=== PATIENT | female | born 1955 | race African-American/Black ===

== ENCOUNTER 2021-09-02 22:49 | Emergency (ER) | payer OTHER, MEDICARE ==
[~2021-09-02] VITALS: Ht 167.6 cm; Wt 87.0 kg
[2021-09-02] MEDS ORDERED: METOCLOPRAMIDE HCL 10MG/2ML VIAL IV ONE (23:15)
[2021-09-02] MEDS ORDERED: DIPHENHYDRAMINE 50MG/ML VIAL IV ONE (23:15)
[2021-09-02 23:53] LABS: BASOPHILS % 0.7 % (0.0-2.0); HEMATOCRIT. 39.5 % (36.0-48.0); HEMOGLOBIN. 12.8 g/dL (12.0-16.0); LYMPHOCYTES % 23.8 % (20.0-50.0); MEAN CORPUSCULAR HEMOGLOBIN 27.7 pg (28.0-32.0); MEAN CORPUSCULAR VOLUME 85.8 fL (81.0-99.0); MEAN PLATELET VOLUME 8.3 fl (7.4-10.4); MONOCYTES % 7.1 % (2.0-8.0); NEUTROPHILS % 67.4 % (40.0-76.0); PLATELET 167 x1000/uL (130-400); RED BLOOD CELL COUNT 4.61 mill/uL (4.2-5.4); RED CELL DISTRIBUTION WIDTH 13.1 % (11.6-14.6)
[2021-09-02 23:58] LABS: CHLORIDE 106 mEq/L (98-107)
[2021-09-03] MEDS ORDERED: ENALAPRIL 2.5MG/2ML VIAL 2ML IV ONE (00:45)
[2021-09-03] MEDS ORDERED: MORPHINE SULFATE 4 MG/ML CPJ (NOT FOR IM USE) IV ONE ×2 (00:45→10:00)
[2021-09-03] MEDS ORDERED: IOHEXOL-350 100 ML BOTTLE ONE (06:11)
[2021-09-03] MEDS ORDERED: HYDRALAZINE 20MG/ML VIAL IV ONE (12:30)
[2021-09-03 12:42] VITALS: BP 166/83
== END 2021-09-03 13:11 | disposition short-term general hospital (02) ==
LOC: ER 22:49
DX: R51.9 Headache, unspecified (principal); E11.9 Type 2 diabetes mellitus without complications; I10 Essential (primary) hypertension; E78.00 Pure hypercholesterolemia, unspecified; Z88.2 Allergy status to sulfonamides
CPT/HCPCS: 36415; 70450; 70496; 71045; 80053; 82962; 85025; 93005; 96374; 96375; 96376; 99285; J0360; J1200; J2270; J2765; J3490; Q9967

== ENCOUNTER 2022-11-23 10:43 | Inpatient (IN) | payer MEDICARE, OTHER ==
[2022-11-23] VITALS (7 sets, daily range): BP systolic 103–153; BP diastolic 37–69; PULSE 80–93; RESP 12–26; TEMP 99.2–99.5
[~2022-11-23] VITALS: Ht 165.1 cm; Wt 79.4 kg
[2022-11-23] MEDS ORDERED: insulin (10:46)
[2022-11-23] MEDS ORDERED: SODIUM CHLORIDE 0.9% 1000ML BAG (SEPSIS BOLUS) IV ONE (11:00)
[2022-11-23 11:37] LABS: BG BASE EXCESS -12.1 mmol/L (-2.0-2.0); BG CARBOXYHEMOGLOBIN 0.3 % (0.5-1.5); BG DEOXYHEMOGLOBIN 4.4 % (0.0-5.0); BG HCO3 ACT 12.6 mmol/L (22.0-26.0); BG METHEMOGLOBIN 0.4 % (0.0-1.5); BG OXYGEN SATURATION 95.6 % (92.0-98.5); BG OXYHEMOGLOBIN 94.9 % (94.0-97.0); BG PCO2 26.5 mmHg (35.0-45.0); BG PH 7.295 (7.350-7.450); BG PO2 84.9 mmHg (75.0-100.0); BG SAMPLE SITE RIGHT BRACHIAL; BG TOTAL HEMOGLOBIN 14.9 g/dL (12.0-18.0); BG VENT MODE ROOM AIR
[2022-11-23 12:15] LABS: BASOPHILS % 0.2 % (0.0-2.0); EOSINOPHILS % 0.1 % (0.0-5.0); HEMATOCRIT. 42.8 % (36.0-48.0); HEMOGLOBIN. 13.9 g/dL (12.0-16.0); LYMPHOCYTES % 9.2 % (20.0-50.0); MEAN CORPUSCULAR HEMOGLOBIN 28.5 pg (28.0-32.0); MEAN CORPUSCULAR HGB CONC 32.6 g/dL (31.0-37.0); MEAN CORPUSCULAR VOLUME 87.3 fL (81.0-99.0); MONOCYTES % 6.7 % (2.0-8.0); NEUTROPHILS % 83.8 % (40.0-76.0); RED CELL DISTRIBUTION WIDTH 13.4 % (11.6-14.6); WHITE BLOOD COUNT 13.2 x1000/uL (4.5-11.0)
[2022-11-23 12:19] LABS: CHLORIDE 93 mEq/L (98-107); INDEX HEMOLYSI 4 (1-3); INDEX ICTERIC 1 (1-4); INDEX LIPEMIC 1 (1-3); SODIUM 130 mEq/L (136-145)
[2022-11-23 12:24] LABS: PROTHROMBIN TIME 10.4 sec (9.6-11.0)
[2022-11-23 12:28] LABS: POTASSIUM 6.1 mEq/L (3.5-5.1)
[2022-11-23 12:31] LABS: ALANINE AMINOTRANSFERASE 24 IU/L (13-61); ALBUMIN 3.2 g/dL (3.4-5.0); ASPARTATE AMINOTRANSFERASE 17 IU/L (15-37); BILIRUBIN TOTAL 0.6 mg/dL (0.1-1.0); CALCIUM 9.4 mg/dL (8.5-10.1); CARBON DIOXIDE 12 mEq/L (21-32); CREATININE 2.1 mg/dL (0.6-1.3); PROTEIN TOTAL 7.6 g/dL (6.0-8.3); TROPONIN I HIGH SENSITIVITY 17 ng/L (<54); UREA NITROGEN BLOOD 58 mg/dL (7-21)
[2022-11-23 12:34] LABS: CLARITY URINE CLEAR (CLEAR); COLOR URINE YELLOW (YELLOW); GLUCOSE URINE 3+ (NEGATIVE); KETONES URINE 1+ (NEGATIVE); LEUKOCYTE ESTERASE URINE NEGATIVE (NEGATIVE); NITRITE URINE NEGATIVE (NEGATIVE); OCCULT BLOOD URINE TRACE (NEGATIVE); PH URINE 5.5 (4.5-8.0); PROTEIN URINE 3+ (NEGATIVE); SPECIFIC GRAVITY URINE 1.026 (1.005-1.030); UROBILINOGEN URINE 0.2 E.U./dL (0.2-1.0)
[2022-11-23 12:35] LABS: DIFFERENTIAL COMMENT 1
[2022-11-23 12:39] LABS: YEAST URINE NONE SEEN
[2022-11-23 12:45] LABS: GLUCOSE 963 mg/dL (70-105)
[2022-11-23] MEDS ORDERED: INSULIN REGULAR (HUMULIN R) 300UNITS/3ML VIAL IV ONE (12:45)
[2022-11-23] MEDS ORDERED: SODIUM CHLORIDE 0.9% 1,000 ML IV SCH ×2 (12:45→14:30)
[2022-11-23] MEDS ORDERED: DEXT 5%/0.9% NACL 1,000 ML IV SCH (12:45)
[2022-11-23] MEDS ORDERED: BLOOD SUGAR DIAGNOSTIC STRIP TEST SCH ×2 (12:45→15:00)
[2022-11-23] MEDS ORDERED: POTASSIUM CHLORIDE INJ 40 MEQ in SODIUM CHLORIDE 0.9% 230 ML IV PRN ×2 (12:45→16:15)
[2022-11-23] MEDS ORDERED: KCL 20MEQ/100ML PREMIX 100 ML IV PRN ×2 (12:45→16:15)
[2022-11-23] MEDS ORDERED: DEXTROSE 50% WATER 50ML SYRINGE IV PRN ×4 (12:45→16:15)
[2022-11-23 12:46] LABS: LACTIC ACID 2.8 mmol/L (0.4-2.0)
[2022-11-23 12:59] LABS: PLATELET 197 x1000/uL (130-400)
[2022-11-23 13:01] LABS: BG BASE EXCESS -12.8 mmol/L (-2.0-2.0); BG CARBOXYHEMOGLOBIN 0.5 % (0.5-1.5); BG DEOXYHEMOGLOBIN 3.9 % (0.0-5.0); BG HCO3 ACT 11.2 mmol/L (22.0-26.0); BG METHEMOGLOBIN 0.4 % (0.0-1.5); BG OXYGEN SATURATION 96.1 % (92.0-98.5); BG OXYHEMOGLOBIN 95.2 % (94.0-97.0); BG PCO2 22.5 mmHg (35.0-45.0); BG PH 7.315 (7.350-7.450); BG PO2 83.2 mmHg (75.0-100.0); BG SAMPLE SITE RIGHT RADIAL; BG VENT MODE ROOM AIR
[2022-11-23 13:10] LABS: BACTERIA URINE 1+; SQUAMOUS EPITHELIAL CELL URINE RARE /lpf (RARE/1+); WBC URINE 0-2 /hpf (0-2)
[2022-11-23 13:24] LABS: CALCIUM 9.2 mg/dL (8.5-10.1)
[2022-11-23 13:36] LABS: CREATININE 2.2 mg/dL (0.6-1.3); PHOSPHORUS 7.8 mg/dL (2.5-4.9)
[2022-11-23 13:51] LABS: POTASSIUM 6.3 mEq/L (3.5-5.1)
[2022-11-23 14:15] LABS: BETA HYDROXYBUTYRATE 11.1 mMol/L (0.0-0.3)
[2022-11-23] MEDS ORDERED: INSULIN REGULAR 100U/100ML PMX 100 ML IV SCH ×2 (14:30→15:00)
[2022-11-23] MEDS ORDERED: INSULIN REGULAR (HUMULIN R) 300UNITS/3ML VIAL IV NR (16:15)
[2022-11-23] MEDS ORDERED: MAGNESIUM 2 G PREMIX 100 ML IV PRN (16:15)
[2022-11-23] MEDS ORDERED: ACETAMINOPHEN 325MG TABLET PO PRN (17:45)
[2022-11-23] MEDS ORDERED: ONDANSETRON HCL 4MG/2ML INJ IV PRN (17:45)
[2022-11-23] MEDS: INSULIN REGULAR 100U/100ML PMX 100 ML IV SCH (18:00)
[2022-11-23] MEDS: BLOOD SUGAR DIAGNOSTIC STRIP TEST SCH ×6 (18:15→23:15)
[2022-11-23] MEDS: SODIUM CHLORIDE 0.9% 1,000 ML IV SCH ×2 (18:57→22:17)
[2022-11-23] MEDS: DEXT 5%/0.9% NACL 1,000 ML IV SCH (21:15)
[2022-11-23 21:25] LABS: CALCIUM 8.5 mg/dL (8.5-10.1); POTASSIUM 4.1 mEq/L (3.5-5.1)
[2022-11-23 21:30] LABS: CREATININE 2.1 mg/dL (0.6-1.3); PHOSPHORUS 2.9 mg/dL (2.5-4.9)
[2022-11-24] VITALS (20 sets, daily range): BP systolic 102–163; BP diastolic 48–86; PULSE 64–79; RESP 16–23; TEMP 97.7–100.5
[2022-11-24] MEDS: BLOOD SUGAR DIAGNOSTIC STRIP TEST SCH ×13 (00:15→21:29)
[2022-11-24 01:13] LABS: POTASSIUM 3.6 mEq/L (3.5-5.1)
[2022-11-24 01:15] LABS: CALCIUM 8.4 mg/dL (8.5-10.1)
[2022-11-24 01:20] LABS: CREATININE 2.1 mg/dL (0.6-1.3); PHOSPHORUS 3.1 mg/dL (2.5-4.9)
[2022-11-24] MEDS: INSULIN REGULAR 100U/100ML PMX 100 ML IV SCH (01:39)
[2022-11-24] MEDS: DEXT 5%/0.9% NACL 1,000 ML IV SCH ×2 (03:16→08:07)
[2022-11-24 05:47] LABS: POTASSIUM 4.2 mEq/L (3.5-5.1)
[2022-11-24 05:55] LABS: CALCIUM 8.4 mg/dL (8.5-10.1); CREATININE 1.9 mg/dL (0.6-1.3); PHOSPHORUS 3.1 mg/dL (2.5-4.9)
[2022-11-24] MEDS: PANTOPRAZOLE SODIUM 40 MG/VIAL IV SCH (09:00)
[2022-11-24 09:26] LABS: POTASSIUM 4.6 mEq/L (3.5-5.1)
[2022-11-24 09:30] LABS: CREATININE 1.7 mg/dL (0.6-1.3)
[2022-11-24] MEDS ORDERED: INSULIN GLARGINE 100 UNITS/ML SUBCUT NR (11:00)
[2022-11-24] MEDS ORDERED: DEXTROSE 50% WATER 50ML SYRINGE IV PRN (11:00)
[2022-11-24 12:24] LABS: BASOPHILS % 0.1 % (0.0-2.0); EOSINOPHILS % 0.1 % (0.0-5.0); HEMATOCRIT. 34.8 % (36.0-48.0); LYMPHOCYTES % 14.1 % (20.0-50.0); MEAN CORPUSCULAR HGB CONC 31.7 g/dL (31.0-37.0); MEAN CORPUSCULAR VOLUME 85.3 fL (81.0-99.0); MEAN PLATELET VOLUME 8.8 fl (7.4-10.4); MONOCYTES % 8.6 % (2.0-8.0); NEUTROPHILS % 77.1 % (40.0-76.0); PLATELET 248 x1000/uL (130-400); RED BLOOD CELL COUNT 4.07 mill/uL (4.2-5.4); RED CELL DISTRIBUTION WIDTH 13.6 % (11.6-14.6); WHITE BLOOD COUNT 18.3 x1000/uL (4.5-11.0)
[2022-11-24 12:31] LABS: CALCIUM 7.2 mg/dL (8.5-10.1); POTASSIUM 4.2 mEq/L (3.5-5.1)
[2022-11-24 12:36] LABS: CREATININE 1.6 mg/dL (0.6-1.3)
[2022-11-24] MEDS ORDERED: INSULIN LISPRO 100 UNITS/ML SUBCUT NR (12:45)
[2022-11-24] MEDS: INSULIN LISPRO 100 UNITS/ML SUBCUT SCH ×3 (12:50→21:29)
[2022-11-24] MEDS: CEFEPIME 1,000 MG in DEXTROSE 5% WATER 50 ML IV SCH (14:00)
[2022-11-24] MEDS ORDERED: VANCOMYCIN 1500MG in DEXTROSE 5% WATER 250ML IV NR (15:00)
[2022-11-24 16:29] LABS: INDEX HEMOLYSI 2 (1-3)
[2022-11-24 17:20] LABS: AMMONIA 115 uMol/L (<32)
[2022-11-24] MEDS ORDERED: SODIUM CHLORIDE 0.9% 100 ML IV ONE (18:45)
[2022-11-24] MEDS ORDERED: SODIUM CHLORIDE 0.9% 1,000 ML IV ONE (19:00)
[2022-11-25] VITALS: BP 123/63; PULSE 65; RESP 18; TEMP 97.5
[2022-11-25] MEDS: CEFEPIME 1,000 MG in DEXTROSE 5% WATER 50 ML IV SCH ×2 (01:13→14:55)
[2022-11-25] MEDS: ACETAMINOPHEN 325MG TABLET PO PRN ×2 (02:53→20:50)
[2022-11-25 04:00] VITALS: BP 126/56; PULSE 67; RESP 18; TEMP 97.2
[2022-11-25] MEDS: BLOOD SUGAR DIAGNOSTIC STRIP TEST SCH ×4 (06:12→20:45)
[2022-11-25] MEDS: INSULIN LISPRO 100 UNITS/ML SUBCUT SCH ×4 (06:12→20:50)
[2022-11-25 06:28] LABS: CHLORIDE 116 mEq/L (98-107); INDEX HEMOLYSI 1 (1-3); INDEX ICTERIC 1 (1-4); INDEX LIPEMIC 1 (1-3); POTASSIUM 3.9 mEq/L (3.5-5.1); SODIUM 142 mEq/L (136-145)
[2022-11-25 06:39] LABS: ALANINE AMINOTRANSFERASE 31 IU/L (13-61); ALBUMIN 2.2 g/dL (3.4-5.0); ASPARTATE AMINOTRANSFERASE 79 IU/L (15-37); BILIRUBIN TOTAL 0.5 mg/dL (0.1-1.0); CALCIUM 8.1 mg/dL (8.5-10.1); CARBON DIOXIDE 23 mEq/L (21-32); CREATININE 1.2 mg/dL (0.6-1.3); GLUCOSE 214 mg/dL (70-105); PROTEIN TOTAL 5.2 g/dL (6.0-8.3); UREA NITROGEN BLOOD 40 mg/dL (7-21)
[2022-11-25 08:00] VITALS: BP 130/68; PULSE 69; RESP 18; TEMP 98.6
[2022-11-25] MEDS: PANTOPRAZOLE SODIUM 40 MG/VIAL IV SCH (09:01)
[2022-11-25] MEDS: ENOXAPARIN 30MG/0.3ML SYR SUBCUT SCH (09:02)
[2022-11-25 12:00] VITALS: BP 130/68; PULSE 78; RESP 18; TEMP 98.3
[2022-11-25] MEDS: LACTULOSE 20G/30ML UDC PO SCH ×2 (14:00→20:50)
[2022-11-25 16:00] VITALS: BP 132/98; PULSE 88; RESP 18; TEMP 98.3
[2022-11-25] MEDS: VANCOMYCIN 750MG PREMIX 150 ML IV SCH (18:55)
[2022-11-25 20:00] VITALS: BP 150/69; PULSE 76; RESP 20; TEMP 98.6
[2022-11-26] VITALS: BP 145/66; PULSE 89; RESP 20; TEMP 97
[2022-11-26] MEDS: CEFEPIME 1,000 MG in DEXTROSE 5% WATER 50 ML IV SCH ×2 (01:58→18:32)
[2022-11-26 04:00] VITALS: BP 152/60; PULSE 66; RESP 20; TEMP 98.8
[2022-11-26] MEDS: BLOOD SUGAR DIAGNOSTIC STRIP TEST SCH ×4 (05:38→21:12)
[2022-11-26] MEDS: LACTULOSE 20G/30ML UDC PO SCH ×3 (05:38→21:12)
[2022-11-26 08:00] VITALS: BP 142/56; PULSE 65; RESP 18; TEMP 98.6
[2022-11-26] MEDS: ENOXAPARIN 30MG/0.3ML SYR SUBCUT SCH (10:39)
[2022-11-26] MEDS: PANTOPRAZOLE SODIUM 40 MG/VIAL IV SCH (10:39)
[2022-11-26] MEDS: INSULIN LISPRO 100 UNITS/ML SUBCUT SCH ×4 (10:49→21:14)
[2022-11-26 12:00] VITALS: BP 123/69; PULSE 57; RESP 20; TEMP 96.6
[2022-11-26] MEDS: ACETAMINOPHEN 325MG TABLET PO PRN ×2 (12:58→18:50)
[2022-11-26 16:00] VITALS: BP 130/69; PULSE 63; RESP 18; TEMP 97
[2022-11-26] MEDS: VANCOMYCIN 750MG PREMIX 150 ML IV SCH (18:32)
[2022-11-26 20:00] VITALS: BP 122/53; PULSE 88; RESP 18; TEMP 97
[2022-11-26 22:14] LABS: BASOPHILS % 0.5 % (0.0-2.0); EOSINOPHILS % 2.2 % (0.0-5.0); HEMATOCRIT. 34.6 % (36.0-48.0); HEMOGLOBIN. 11.2 g/dL (12.0-16.0); LYMPHOCYTES % 24.9 % (20.0-50.0); MEAN CORPUSCULAR HEMOGLOBIN 27.4 pg (28.0-32.0); MEAN CORPUSCULAR HGB CONC 32.4 g/dL (31.0-37.0); MEAN CORPUSCULAR VOLUME 84.4 fL (81.0-99.0); MEAN PLATELET VOLUME 9.5 fl (7.4-10.4); MONOCYTES % 8.9 % (2.0-8.0); NEUTROPHILS % 63.5 % (40.0-76.0); PLATELET 206 x1000/uL (130-400); RED CELL DISTRIBUTION WIDTH 13.2 % (11.6-14.6)
[2022-11-26 22:22] LABS: CHLORIDE 115 mEq/L (98-107); INDEX HEMOLYSI 1 (1-3); INDEX ICTERIC 1 (1-4); INDEX LIPEMIC 1 (1-3); POTASSIUM 3.4 mEq/L (3.5-5.1); SODIUM 135 mEq/L (136-145)
[2022-11-26 22:23] LABS: INDEX HEMOLYSI 1 (1-3)
[2022-11-26 22:27] LABS: AMMONIA 31 uMol/L (<32)
[2022-11-26 22:38] LABS: ALANINE AMINOTRANSFERASE 27 IU/L (13-61); ASPARTATE AMINOTRANSFERASE 38 IU/L (15-37); BILIRUBIN TOTAL 0.2 mg/dL (0.1-1.0); CALCIUM 7.8 mg/dL (8.5-10.1); CARBON DIOXIDE 23 mEq/L (21-32); GLUCOSE 232 mg/dL (70-105); UREA NITROGEN BLOOD 23 mg/dL (7-21)
[2022-11-27] VITALS: BP 139/80; PULSE 90; RESP 18; TEMP 97
[2022-11-27] MEDS: CEFEPIME 1,000 MG in DEXTROSE 5% WATER 50 ML IV SCH (02:12)
[2022-11-27 04:00] VITALS: BP 140/89; PULSE 72; RESP 18; TEMP 98.6
[2022-11-27] MEDS: LACTULOSE 20G/30ML UDC PO SCH ×3 (05:18→22:24)
[2022-11-27] MEDS: ACETAMINOPHEN 325MG TABLET PO PRN ×3 (05:18→23:41)
[2022-11-27] MEDS: BLOOD SUGAR DIAGNOSTIC STRIP TEST SCH ×4 (06:06→21:50)
[2022-11-27] MEDS: INSULIN LISPRO 100 UNITS/ML SUBCUT SCH ×4 (06:06→23:43)
[2022-11-27 08:00] VITALS: BP 137/65; PULSE 74; RESP 18; TEMP 98.2
[2022-11-27] MEDS: ENOXAPARIN 30MG/0.3ML SYR SUBCUT SCH (08:31)
[2022-11-27] MEDS: PANTOPRAZOLE SODIUM 40 MG/VIAL IV SCH (08:31)
[2022-11-27 09:13] LABS: CALCIUM 8.1 mg/dL (8.5-10.1); CHLORIDE 111 mEq/L (98-107); INDEX HEMOLYSI 3 (1-3); INDEX ICTERIC 1 (1-4); INDEX LIPEMIC 1 (1-3); POTASSIUM 3.9 mEq/L (3.5-5.1); SODIUM 139 mEq/L (136-145)
[2022-11-27 09:20] LABS: CARBON DIOXIDE 25 mEq/L (21-32); CREATININE 0.9 mg/dL (0.6-1.3); GLUCOSE 246 mg/dL (70-105); UREA NITROGEN BLOOD 22 mg/dL (7-21)
[2022-11-27 09:32] LABS: AMMONIA 27 uMol/L (<32)
[2022-11-27 12:00] VITALS: BP 140/56; PULSE 64; RESP 18; TEMP 98.1
[2022-11-27] MEDS: INSULIN GLARGINE 100 UNITS/ML SUBCUT SCH (12:00)
[2022-11-27 16:00] VITALS: BP 148/72; PULSE 93; RESP 20; TEMP 97.8
[2022-11-27 20:00] VITALS: BP 179/76; PULSE 68; RESP 20; TEMP 97.3
[2022-11-28] VITALS: BP 177/71; PULSE 72; RESP 20; TEMP 97.2
[2022-11-28 04:00] VITALS: BP 164/73; PULSE 76; RESP 20; TEMP 97.6
[2022-11-28] MEDS: LACTULOSE 20G/30ML UDC PO SCH ×3 (05:41→21:42)
[2022-11-28] MEDS: BLOOD SUGAR DIAGNOSTIC STRIP TEST SCH ×4 (06:47→21:48)
[2022-11-28] MEDS: INSULIN LISPRO 100 UNITS/ML SUBCUT SCH ×3 (07:40→21:59)
[2022-11-28 08:00] VITALS: BP 134/80; PULSE 73; RESP 18; TEMP 97.6
[2022-11-28] MEDS: ENOXAPARIN 30MG/0.3ML SYR SUBCUT SCH (08:48)
[2022-11-28] MEDS: FAMOTIDINE 20MG TABLET PO SCH (08:48)
[2022-11-28] MEDS: INSULIN GLARGINE 100 UNITS/ML SUBCUT SCH (10:02)
[2022-11-28 12:00] VITALS: BP 96/70; PULSE 70; RESP 20; TEMP 97.6
[2022-11-28] MEDS: ACETAMINOPHEN 325MG TABLET PO PRN ×2 (12:59→19:16)
[2022-11-28 16:00] VITALS: BP 149/62; PULSE 71; RESP 20; TEMP 98.4
[2022-11-28 20:00] VITALS: BP 142/62; PULSE 74; RESP 19; TEMP 97.5
[2022-11-29] VITALS: BP 148/62; PULSE 70; RESP 20; TEMP 96.8
[2022-11-29 04:00] VITALS: BP 181/68; PULSE 68; RESP 20; TEMP 96.6
[2022-11-29] MEDS: BLOOD SUGAR DIAGNOSTIC STRIP TEST SCH ×4 (06:31→20:56)
[2022-11-29] MEDS: LACTULOSE 20G/30ML UDC PO SCH ×3 (06:31→20:56)
[2022-11-29] MEDS: INSULIN LISPRO 100 UNITS/ML SUBCUT SCH ×4 (07:14→21:13)
[2022-11-29 08:00] VITALS: BP 156/58; PULSE 77; RESP 20; TEMP 97.8
[2022-11-29] MEDS: FAMOTIDINE 20MG TABLET PO SCH (08:23)
[2022-11-29] MEDS: ENOXAPARIN 30MG/0.3ML SYR SUBCUT SCH (08:24)
[2022-11-29] MEDS: ACETAMINOPHEN 325MG TABLET PO PRN ×2 (08:35→23:59)
[2022-11-29] MEDS ORDERED: INSULIN GLARGINE 100 UNITS/ML SUBCUT SCH (10:00)
[2022-11-29] MEDS: INSULIN GLARGINE 100 UNITS/ML SUBCUT SCH (10:13)
[2022-11-29 11:25] VITALS: BP 154/74; PULSE 68; TEMP 97.4; O2SAT 97
[2022-11-29 12:00] VITALS: BP 156/93; PULSE 69; RESP 20; TEMP 97.7
[2022-11-29] MEDS ORDERED: BISACODYL 5MG TABLET PO PRN (13:30)
[2022-11-29 20:00] VITALS: BP 111/54; PULSE 71; RESP 20; TEMP 99
[2022-11-30] VITALS: BP 133/66; PULSE 73; RESP 18; TEMP 98.1
[2022-11-30 04:00] VITALS: BP 158/61; PULSE 65; RESP 20; TEMP 97.4
[2022-11-30] MEDS: BLOOD SUGAR DIAGNOSTIC STRIP TEST SCH ×2 (07:09→12:10)
[2022-11-30] MEDS: LACTULOSE 20G/30ML UDC PO SCH ×2 (07:12→13:20)
[2022-11-30] MEDS: INSULIN LISPRO 100 UNITS/ML SUBCUT SCH ×2 (07:14→13:24)
[2022-11-30 08:00] VITALS: BP 131/59; PULSE 66; RESP 18; TEMP 98.1
[2022-11-30] MEDS: ENOXAPARIN 30MG/0.3ML SYR SUBCUT SCH (09:54)
[2022-11-30] MEDS: FAMOTIDINE 20MG TABLET PO SCH (09:55)
[2022-11-30] MEDS: ACETAMINOPHEN 325MG TABLET PO PRN (09:55)
[2022-11-30] MEDS: INSULIN GLARGINE 100 UNITS/ML SUBCUT SCH (09:57)
[2022-11-30 12:00] VITALS: BP 127/57; PULSE 64; RESP 18; TEMP 97.2
[2022-11-30] MEDS ORDERED: LANTUSUD SUBCUT (12:50)
[2022-11-30 13:09] LABS: FOLIC ACID (FOLATE) SERUM 9.8 ng/mL (>5.38)
[2022-11-30 15:32] VITALS: BP 131/59; PULSE 66; TEMP 98.1; O2SAT 98
[2022-11-30 16:00] VITALS: BP 125/56; PULSE 62; RESP 18; TEMP 97.8
== END 2022-11-30 16:45 | DRG 871 ==
LOC: ER 11:33 → MICUSO 12:56 → EDBEDREQTM 13:04 → EDBEDREQ 13:04 → 8WST 11-24 19:33
PROVIDERS: ADMIT Hospitalist; ATTEND Hospitalist
DX: A41.9 Sepsis, unspecified organism (principal); E11.00 Type 2 diabetes mellitus with hyperosmolarity without nonketotic hyperglycemic-hyperosmolar coma (NKHHC); E11.10 Type 2 diabetes mellitus with ketoacidosis without coma; G92.8 Other toxic encephalopathy; J18.9 Pneumonia, unspecified organism; E44.0 Moderate protein-calorie malnutrition; E87.1 Hypo-osmolality and hyponatremia; N17.9 Acute kidney failure, unspecified; N39.0 Urinary tract infection, site not specified; E72.20 Disorder of urea cycle metabolism, unspecified; E83.39 Other disorders of phosphorus metabolism; E83.41 Hypermagnesemia; E86.0 Dehydration; E87.5 Hyperkalemia; I10 Essential (primary) hypertension; D64.9 Anemia, unspecified; Z20.822 Contact with and (suspected) exposure to COVID-19; R13.10 Dysphagia, unspecified; R74.01 Elevation of levels of liver transaminase levels; R26.9 Unspecified abnormalities of gait and mobility; K59.00 Constipation, unspecified; E11.42 Type 2 diabetes mellitus with diabetic polyneuropathy; E78.00 Pure hypercholesterolemia, unspecified; Z88.2 Allergy status to sulfonamides; Z79.899 Other long term (current) drug therapy; Z83.3 Family history of diabetes mellitus
CPT/HCPCS: 36415; 36600; 71045; 80048; 80051; 80053; 80202; 81003; 82010; 82140; 82306; 82375; 82607; 82746; 82805; 82962; 83036; 83605; 83735; 83930; 84100; 84145; 84443; 84484; 85025; 87426; 93005; 97162; 97166; 97530; 99291; C9113; C9803; J0692; J1650; J1815; J2405; J3370; J3480; J7030; J7042; J7060